=== PATIENT | female | born 1935 | race Caucasian/White ===

== ENCOUNTER 2019-08-03 05:40 | Emergency (ER) | payer MEDICARE ==
[~2019-08-03] VITALS: Ht 167.6 cm; Wt 67.6 kg
--- NOTE | 2019-08-03 05:59 | NUR ---
NAE FROM [facility]. TO ER BED 10. AAOX3. NO RESP DISTRESS NPTED, BREATHING EVEN AND UNLABORED. C/O DIARRHEA. PT REPORTS SHE HAS BEEN HAVING DIARRHEA X 2 DAYS. PT REPORTS LOOSE WATERY STOOL. PT ALSO COMPLAINTS OF GEN ABDOMEN DISCOMFORT. AWAITING MD FOR EVAL.
[2019-08-03] MEDS ORDERED: ONDANSETRON HCL/PF 4 MG/2 ML VIAL ONE (06:09)
[2019-08-03 06:26] LABS: BASOPHILS # (AUTO) 0.1 /CMM (0.0-0.2); BASOPHILS % (AUTO) 0.9 % (0.0-2.0); EOSINOPHILS % (AUTO) 2.7 % (0.0-6.0); HEMATOCRIT 39 % (33-45); HEMOGLOBIN 13.2 g/dL (11.5-14.8); LYMPHOCYTES % (AUTO) 33.2 % (20.0-44.0); MEAN CORPUSCULAR HGB CONC 33 g/dl (31.0-36.0); MEAN CORPUSCULAR VOLUME 91 fL (82-100); MONOCYTES # (AUTO) 0.9 /CMM (0.1-1.30); MONOCYTES % (AUTO) 7.2 % (2.0-12.0); NEUTROPHILS # (AUTO) 6.8 /CMM (1.8-8.9); PLATELET COUNT (AUTO) 240 /CMM (150-450); RED BLOOD CELL COUNT(AUTO) 4.36 MIL/uL (4.0-5.2); WHITE BLOOD COUNT (AUTO) 12.2 K/uL (4.3-11.0)
[2019-08-03] MEDS ORDERED: ONDANSETRON HCL/PF 4 MG/2 ML VIAL IVP ONE (06:30)
[2019-08-03] MEDS ORDERED: IV NS 0.9% 500 ML BAG IV ONE (06:30)
[2019-08-03] MEDS ORDERED: ONDANSETRON HCL/PF - ER 4 MG/2 ML VIAL IV ONE (06:30)
[2019-08-03 06:56] LABS: ALBUMIN 3.2 g/dL (3.4-5.0); BILIRUBIN,DIRECT 0.2 mg/dL (0.0-0.2); BILIRUBIN,TOTAL 0.7 mg/dL (0.2-1.0); CREATININE 1.2 mg/dL (0.6-1.3); POTASSIUM 3.4 mmol/L (3.5-5.1); TOTAL PROTEIN, SERUM 6.7 g/dL (6.4-8.2)
--- NOTE | 2019-08-03 07:03 | NUR ---
VERIFIED WITH MD REGARDING 2 ZOFRAN ORDERS. MD ORDERED TO GIVE ONLY ONE DOSE AND OTHER ORDER CANCELLED.
--- NOTE | 2019-08-03 07:24 | NUR ---
RECEIVED REPORT FROM TREASURE CORTÉS FOR CLARKE, PT IS AAOX3, NOT IN RESPIRATORY DISTRESS, V/S STABLE KEPT RESTED AND COMFORTABLE, WILL CONTINUE TO MONITOR.
--- NOTE | 2019-08-03 07:41 | NUR ---
CALLED [facility], SPOKE TO JEFF FROM [facility], ETA 0915, TRIP NUMBER:[id number]
[2019-08-03 09:41] VITALS: BP 148/89
--- NOTE | 2019-08-03 09:41 | NUR ---
IV removed. Catheter intact and site benign. Pressure and 4x4 applied to site. No bleeding noted. Patient discharged to home in stable condition. Written and verbal after care instructions given. Patient verbalizes understanding of instruction.
--- NOTE | 2019-08-04 12:46 | NUR ---
PATIENT WAS TRANSFERRED DISCHARGED TO [facility]UE: STOOL MICRO POSITIVE FOR C-DIFF CALLED TO PRIMARY NURSE CAN POLK
== END 2019-08-03 09:43 | disposition home or self-care (01) ==
LOC: ER 05:46
DX: R19.7 Diarrhea, unspecified (principal); I10 Essential (primary) hypertension; I48.91 Unspecified atrial fibrillation; Z86.73 Personal history of transient ischemic attack (TIA), and cerebral infarction without residual deficits
CPT/HCPCS: 36415; 71045; 80048; 80076; 83690; 85025; 87493; 96374; 99284; J2405 ×2; J7040

== ENCOUNTER 2021-05-07 15:11 | Inpatient (IN) | payer MEDICARE ==
[~2021-05-07] VITALS: Ht 170.2 cm; Wt 63.5 kg
--- NOTE | 2021-05-07 15:20 | NUR ---
NAE FROM LONG TERM, FOR FAILURE TO THRIVE, PT REFUSING MEDS X 3 DAYS. PATIENT A/OX4, BREATHING EVEN AND UNLABORED, PER PATIENT SHE HASN'T BEEN TAKING HER MEDS BECAUSE SHE DOESN'T NEED IT, EXCEPT FOR HER BP MEDS. PATIENT DENIES ANY COMPLAINTS. CHANGED INTO A GOWN.
--- NOTE | 2021-05-07 15:35 | NUR ---
DR. ISLAS AT BEDSIDE FOR EVAL.
--- NOTE | 2021-05-07 15:45 | NUR ---
PHLEB AT BEDSIDE FOR BLOOD DRAW. OFFERED A BED HOBBS, PATIENT REFUSED, STS "SHE CANNOT GO AT THIS TIME"
[2021-05-07 15:51] LABS: BASOPHILS # (AUTO) 0.1 /CMM (0.0-0.2); BASOPHILS % (AUTO) 1.3 % (0.0-2.0); HEMATOCRIT 38 % (33-45); HEMOGLOBIN 12.6 g/dL (11.5-14.8); MEAN CORPUSCULAR HGB CONC 33 g/dl (31.0-36.0); MEAN CORPUSCULAR VOLUME 90 fL (82-100); MONOCYTES # (AUTO) 0.8 /CMM (0.1-1.30); MONOCYTES % (AUTO) 8.7 % (2.0-12.0); PLATELET COUNT (AUTO) 267 /CMM (150-450); RED BLOOD CELL COUNT(AUTO) 4.25 MIL/uL (4.0-5.2); WHITE BLOOD COUNT (AUTO) 9.2 K/uL (4.3-11.0)
--- NOTE | 2021-05-07 15:51 | NUR ---
PATIENT IS REFUSING A BED HOBBS AND A STRAIGHT CATHETER FOR A URINE SAMPLE. EXPLAINED RISKS AND BENEFITS STILL REFUSED. INFORMED DR. ISLAS.
[2021-05-07 16:00] LABS: CALCIUM, SERUM 9.4 mg/dL (8.5-10.1); CARBON DIOXIDE 27 mmol/L (21-32); CHLORIDE 106 mmol/L (98-107); CREATININE 1.2 mg/dL (0.6-1.3); GLUCOSE 85 mg/dL (74-106); POTASSIUM 4.2 mmol/L (3.5-5.1); SODIUM SERUM 141 mmol/L (136-145); UREA NITROGEN, BLOOD 19 mg/dL (7-18)
[2021-05-07 16:07] LABS: ALANINE AMINOTRANSFERASE 16 U/L (12-78); ALCOHOL, BLOOD < 3 mg/dL (0-0); ALKALINE PHOSPHATASE 76 U/L (46-116); ASPARTATE AMINOTRANSFERASE 20 U/L (15-37); BILIRUBIN,DIRECT 0.1 mg/dL (0.0-0.2); BILIRUBIN,TOTAL 0.5 mg/dL (0.2-1.0); TOTAL PROTEIN, SERUM 7.2 g/dL (6.4-8.2)
[2021-05-07 16:08] LABS: ACETAMINOPHEN < 0 ug/ml (10-30)
[2021-05-07] MEDS ORDERED: SENN-175 PO (16:18)
[2021-05-07] MEDS ORDERED: ATOR20TA PO (16:18)
[2021-05-07] MEDS ORDERED: BUPR150T10 PO (16:18)
[2021-05-07] MEDS ORDERED: OLAN5TAB3 PO (16:18)
[2021-05-07] MEDS ORDERED: APIX2.5T PO (16:18)
[2021-05-07] MEDS ORDERED: VIT1TABL46 PO (16:18)
[2021-05-07] MEDS ORDERED: POLY17PO4 PO (16:18)
[2021-05-07] MEDS ORDERED: NA P133E8 RC (16:18)
[2021-05-07] MEDS ORDERED: FAMO20TA80 PO (16:18)
[2021-05-07] MEDS ORDERED: HYDR-4075 PO (16:18)
[2021-05-07] MEDS ORDERED: BISA10SU11 RC (16:18)
[2021-05-07] MEDS ORDERED: DOCU-141 PO (16:18)
[2021-05-07] MEDS ORDERED: TRAM50TA2 PO (16:18)
[2021-05-07] MEDS ORDERED: MELA3TAB41 PO (16:18)
[2021-05-07] MEDS ORDERED: MIRT-119 PO (16:18)
[2021-05-07] MEDS ORDERED: MAGN400O6 PO (16:18)
[2021-05-07] MEDS ORDERED: ZINC220T4 PO (16:18)
[2021-05-07] MEDS ORDERED: ACET325T53 PO (16:18)
[2021-05-07] MEDS ORDERED: METO25TA6 PO (16:18)
--- NOTE | 2021-05-07 16:19 | NUR ---
CALLED NURSING SUP FOR M/S BED.
--- NOTE | 2021-05-07 16:25 | NUR ---
COVID SWAB SENT TO LAB.
--- NOTE | 2021-05-07 16:31 | NUR ---
URINE SENT TO LAB. PATIENT HAD A BM, SKIN CARE DONE.
[2021-05-07 16:35] LABS: BILIRUBIN,URINE Negative (NEGATIVE); COLOR,URINE YELLOW (YELLOW); LEUKOCYTE ESTERASE ,URINE Trace (NEGATIVE); NITRITE, URINE Negative (NEGATIVE); PH,URINE 6.5 (5.0-8.0); PROTEIN,URINE Negative (NEGATIVE); UGLUCOSE Negative (NEGATIVE); UROBILINOGEN,URINE 0.2 EU/dL (0.2)
[2021-05-07 16:43] LABS: BACTERIA,URINE Few /HPF (None Seen); HYALINE CASTS, URINE Few /LPF (None Seen); MUCUS,URINE Few /LPF (None Seen); SQUAMOUS EPITHELIAL CELL,UR Few /HPF (None Seen)
--- NOTE | 2021-05-07 17:01 | NUR ---
NURSING SUP GAVE 104.
--- NOTE | 2021-05-07 17:15 | NUR ---
REPORT GIVEN TO MARICEL AMANDA FOR CLARKE.
[2021-05-07] MEDS ORDERED: FUROSEMIDE 20 MG/2 ML VIAL IV STA (17:27)
[2021-05-07] MEDS ORDERED: FUROSEMIDE 20 MG/2 ML VIAL ONE (17:39)
--- NOTE | 2021-05-07 17:42 | NUR ---
INSERTED IV ON LEFT HAND G22, LASIX GIVEN. PATIENT A/OX4, TRANSFERRED TO MED SURG FLOOR IN STABLE CONDITION.
--- NOTE | 2021-05-07 17:47 | NUR ---
GAVE UPDATE TO MARICEL VELEZ: JAREN ORDER AND IV SITE.
[2021-05-07 17:55] VITALS: BP 145/91
--- NOTE | 2021-05-07 17:55 | NUR ---
RN NOTES RECEIVED PT FROM ER. REPORT GIVEN BY YAZMIN AMANDA. A/OX4. STABLE ON ROOM AIR. NO SOB OR ANY S/S OF RESPIRATORY DISTRESS. DENIES ANY PAIN AT THIS MOMENT. SKIN IS INTACT. BELONGING LIST SIGNED. INFORMED DR. LAWS ABOUT ELEVATED BNP AND ADMITTING ORDERS. STILL AWAITS RESPONSE. PLACED IN BED, LOCKED AND IN LOWEST POSITION WITH SIDE RAILS UP X2. CALL LIGHT WITHIN REACH. WILL CONTINUE TO MONITOR.
[2021-05-07] MEDS ORDERED: Z GUARD REMEDY 2 OZ OINT TP PRN (18:30)
[2021-05-07] MEDS ORDERED: ACETAMINOPHEN 325 MG TABLET PO PRN (18:30)
[2021-05-07] MEDS ORDERED: HYDROCODONE/APAP 5/325MG TABLET PO PRN (18:30)
[2021-05-07] MEDS ORDERED: ONDANSETRON HCL/PF 4 MG/2 ML VIAL IVP PRN (18:30)
[2021-05-07] MEDS ORDERED: MAG HYDROX/AL HYDROX/SIMETH 30 ML UDC PO PRN (18:30)
[2021-05-07] MEDS ORDERED: SENNOSIDES 8.6 MG TABLET PO PRN (18:30)
[2021-05-07] MEDS ORDERED: NA PHOS,M-B/NA PHOS,DI-BA 1 EA ENEMA RC PRN (18:30)
[2021-05-07] MEDS ORDERED: MAGNESIUM HYDROXIDE 30 ML UDC PO PRN (18:30)
[2021-05-07] MEDS ORDERED: hydrALAZINE HCL 10 MG TABLET PO PRN (18:30)
--- NOTE | 2021-05-07 18:43 | NUR ---
RN NOTES PT REFUSES TELE MONITORING DESPITE EDUCATION X3. STILL REFUSED. INFORMED DR. LAWS, ADMIT TO MS INSTEAD OF TELEMETRY.
--- NOTE | 2021-05-07 19:11 | NUR ---
RN CLOSING NOTES NO SIGNIFICANT CHANGES THROUGHOUT THE SHIFT. STABLE ON ROOM AIR. NO PAIN REPORTED AT THIS TIME. KEPT CLEAN AND DRY. REFUSES ASSESSMENT ON LLE. SAFETY MEASURES STILL IN PLACE. WILL ENDORSE TO NIGHT RN FOR CLARKE.
[2021-05-07 20:00] VITALS: BP 137/108
--- NOTE | 2021-05-07 20:00 | NUR ---
RN NOTE RECEIVED PT IN BED ALERT AND ORIENTED. NO RESP DISTRESS NOTED. O2 SAT AT 95 % ON ROOM AIR. DENIES ANY SOB OR PAIN PT WITH IV ON LHAND. PATENT AND INTACT, FLUSHES WELL. ALL SAFETY MEASURES IMPLEMENTED PER PROTOCOL. CALL LIGHT WITHIN REACH, BED LOCKED IN LOWEST POSITION. SIDE RAILS UP.
[2021-05-07] MEDS: OLANZAPINE 5 MG TABLET PO SCH (21:18)
[2021-05-07] MEDS: buPROPion SR 150 MG TABLET.ER PO SCH (21:18)
[2021-05-07] MEDS: MIRTAZAPINE 15 MG TABLET PO SCH (21:18)
[2021-05-07] MEDS ORDERED: Medication Not On Formulary EA (Melatonin 3 MG) PO SCH (22:00)
[2021-05-07] MEDS ORDERED: ZOLPIDEM TARTRATE 5 MG TABLET PO PRN (22:00)
--- NOTE | 2021-05-07 23:40 | NUR ---
RN NOTE PT WITH LEFT LEG BOOT. CALLED PT FACILITY [facility], SPOKE TO NURSE THAT PT NEEDS IT WHILE IN BED WELL. NO DISCOLORATION NOTED. WITH GOOD CIRCULATION. WILL CONTINUE TO MONITOR.
[2021-05-08 04:00] VITALS: BP 150/99
[2021-05-08 06:24] LABS: BASOPHILS # (AUTO) 0.1 /CMM (0.0-0.2); BASOPHILS % (AUTO) 0.7 % (0.0-2.0); EOSINOPHILS % (AUTO) 5.2 % (0.0-6.0); HEMATOCRIT 38 % (33-45); HEMOGLOBIN 12.5 g/dL (11.5-14.8); LYMPHOCYTES # (AUTO) 5.1 /CMM (0.8-4.8); LYMPHOCYTES % (AUTO) 44.6 % (20.0-44.0); MEAN CORPUSCULAR HGB CONC 33 g/dl (31.0-36.0); MEAN CORPUSCULAR VOLUME 90 fL (82-100); MONOCYTES # (AUTO) 1.2 /CMM (0.1-1.30); MONOCYTES % (AUTO) 10.5 % (2.0-12.0); NEUTROPHILS # (AUTO) 4.5 /CMM (1.8-8.9); PLATELET COUNT (AUTO) 244 /CMM (150-450); RED BLOOD CELL COUNT(AUTO) 4.24 MIL/uL (4.0-5.2); WHITE BLOOD COUNT (AUTO) 11.4 K/uL (4.3-11.0)
--- NOTE | 2021-05-08 06:39 | NUR ---
RN NOTE PT SLEEPING, AROUSES EASILY. PT FORGETFUL, REORIENTED TO PLACE AND TIME. ABLE TO MAKE NEEDS KNOWN. NO SIGNS OF DISTRESS NOTED. PT DENIES ANY PAIN OR SOB. PT VOIDED 3X ON DIAPER, SOAKED. KEPT HOB ELEVATED. PT TOLERATING ROOM AIR. IV REMAIN PATENT AND INTACT. ALL SAFETY MEASURES MAINTAINED. WILL ENDORSE TO NEXT SHIFT NURSE FOR CLARKE.
[2021-05-08 07:05] LABS: CALCIUM, SERUM 9.2 mg/dL (8.5-10.1); CREATININE 1.2 mg/dL (0.6-1.3); MAGNESIUM 1.8 mg/dL (1.8-2.4); PHOSPHORUS 3.1 mg/dL (2.5-4.9); POTASSIUM 3.7 mmol/L (3.5-5.1)
[2021-05-08 07:29] LABS: THYROID STIMULATING HORMONE 12.524 uIU/mL (0.358-3.74)
[2021-05-08] MEDS: PANTOPRAZOLE 40 MG TABLET.DR PO SCH (08:13)
[2021-05-08] MEDS: VIT B CMPLX 3/FA/VIT C/BIOTIN 1 TAB TABLET PO SCH (08:21)
[2021-05-08] MEDS: ZINC SULFATE 220 MG CAPSULE PO SCH (08:21)
[2021-05-08] MEDS: buPROPion SR 150 MG TABLET.ER PO SCH ×2 (08:21→21:09)
[2021-05-08] MEDS: FUROSEMIDE 40 MG/4 ML VIAL IV SCH (08:21)
[2021-05-08] MEDS: METOPROLOL TARTRATE 25 MG TABLET PO SCH ×2 (08:23→18:33)
[2021-05-08] MEDS: APIXABAN 2.5 MG TABLET PO SCH ×2 (08:25→18:38)
[2021-05-08] MEDS: DOCUSATE SODIUM 100 MG CAPSULE PO SCH ×2 (09:00→16:02)
[2021-05-08] MEDS ORDERED: ATORVASTATIN 10 MG TABLET PO SCH (09:00)
[2021-05-08 12:00] VITALS: BP 154/88
--- NOTE | 2021-05-08 18:35 | NUR ---
PT REFUSED AN ECHOCARDIOGRAM TWICE. PT REFUSED YESTERDAY AND TODAY. INFORMED TREASURE BAEZ.
--- NOTE | 2021-05-08 19:21 | NUR ---
1700 PATIENT COMPLIANT WITH CARE, TOOK PM MEDICATIONS EXCEPT COLACE STATED SHE HAD A BIG BM YESTERDAY AND LOOSE STOOL TODAY AND DID NOT WANT THE MEDICATION AT THIS TIME IT WAS RETURNED TO [facility], SHE REFUSED CARE FROM VISUAL EFFECTS EDITOR AND WANTED TO CLEAN AND HELP HER SELF SO SHE WAS ALLOWED TO PERFORM HER OWN ADLS AND MICHAEL CARE, ALL SAFETY MEASURES CARRIED OUT AND CALL LIGHT IN REACH.
--- NOTE | 2021-05-08 19:55 | NUR ---
RN NOTE REC'D PT IN BED, A/O X3. PT IS ON ROOM AIR NO RESP DISTRESS, NO SOB NOTED. PT ON MED SURG MONITORING. IV SITE REPLACED, LEFT HAND #22 INTACT PATENT. PM CARE DONE. ALL NEEDS ATTENDED. PT DENIES PAIN AT THIS TIME. REDNESS NOTED UNDER BREASTFOLD, ZGUARD APPLIED. ALL SAFETY MEASURES IN PLACE. HOB ELEVATED. SIDE RAILS UP X2 BED LOCKED IN LOWEST POSITION WITH BED ALARM ON. CALL LIGHT WITHIN REACH. WILL CONT TO MONITOR CLOSELY.
[2021-05-08 20:00] VITALS: BP 144/97
[2021-05-08] MEDS: OLANZAPINE 5 MG TABLET PO SCH (21:09)
[2021-05-08] MEDS: MIRTAZAPINE 15 MG TABLET PO SCH (21:09)
--- NOTE | 2021-05-08 22:40 | NUR ---
RN NOTE REDNESS/RASH NOTED UNDER BILATERAL BREASTFOLDS. PT REFUSES PICTURES FOR WOUND DOCUMENTATION AT THIS TIME. EXPLAIN RISK AND BENEFITS X2 STILL REFUSES.
[2021-05-09 04:00] VITALS: BP 125/87
--- NOTE | 2021-05-09 05:50 | NUR ---
RN NOTE-LAB DRAW REFUSAL PT REFUSED TO GET LABS DRAWN, EXPLAINED RISK AND BENEFITS X3 PT STILL REFUSED. PT BECAME AGITATED AND AGGRESSIVE.
--- NOTE | 2021-05-09 06:40 | NUR ---
RN CLOSING NOTES AT THIS TIME, PT IS RESTING IN BED. NO SIGNIFICANT CHANGES IN PT CONDITION. PT CAN BE CONFUSED AT TIMES, BUT RESPONDS TO REORIENTATION. ALL NEEDS ATTENDED. PT NOT IN DISTRESS. NO SOB NOTED. DENIES PAIN. PT PEND WOUND CONSULT. REFUSED PICTURES. SAFETY MEASURES IN PLACE. HOB ELEVATED SIDE RAILS UP X2 BED LOCKED IN LOWEST POSITION WITH BED ALARM LACQUER MIXER LIGHT WITHIN REACH. WILL ENDORSE TO DAY SHIFT FOR CONTINUATION OF CARE.
[2021-05-09] MEDS: PANTOPRAZOLE 40 MG TABLET.DR PO SCH (07:38)
--- NOTE | 2021-05-09 07:42 | NUR ---
MS/RN OPENING NOTES RECEIVED PATIENT IN AWAKE ALERT AND ORIENTED X3. PATIENT IS ON ROOM AIR SATURATING WELL. PATIENT IN NO APPARENT RESPIRATORY DISTRESS NOTED. NO COMPLAINED OF PAIN AT THIS TIME. PATIENT REFUSED BLOOD DRAW PER KASH AMANDA. WILL CONTINUE TO MONITOR.
[2021-05-09] MEDS: FUROSEMIDE 40 MG/4 ML VIAL IV SCH (08:55)
[2021-05-09] MEDS: METOPROLOL TARTRATE 25 MG TABLET PO SCH ×2 (09:00→17:00)
[2021-05-09] MEDS: buPROPion SR 150 MG TABLET.ER PO SCH (09:00)
[2021-05-09] MEDS: DOCUSATE SODIUM 100 MG CAPSULE PO SCH ×2 (09:00→17:00)
[2021-05-09] MEDS: ZINC SULFATE 220 MG CAPSULE PO SCH (09:00)
[2021-05-09] MEDS: APIXABAN 2.5 MG TABLET PO SCH ×2 (09:00→17:00)
[2021-05-09] MEDS: VIT B CMPLX 3/FA/VIT C/BIOTIN 1 TAB TABLET PO SCH (09:00)
--- NOTE | 2021-05-09 09:21 | NUR ---
WOUND CARE CONSULT: REVIEWED CHART AND NURSING DOCUMENTATION WHICH INDICATES RASH TO BREASTFOLDS, PRESENT ON ADMISSION. PER CHART AND RN REPORT, PT HAS BEEN REFUSING MEDS, TREATMENTS AND PHOTOS. RECOMMENDATIONS MADE FOR SKIN PROTECTION BASED ON NURSING REPORT. MD IN AGREEMENT WITH PLAN OF CARE.
--- NOTE | 2021-05-09 09:53 | NUR ---
MS/RN NOTES PATIENT REFUSED MORNING SCHEDULE MEDICATIONS, EXPLAINED THE RISK AND BENEFITS. MD WAS AWARE. WILL CONTINUE TO MONITOR.
--- NOTE | 2021-05-09 10:38 | NUR ---
MS/RN NOTES DR. LAWS ORDER PSYCHE EVALUATION REASON HISTORY OF REFUSING MEDICATIONS, ANXIETY AND DEPRESSION. FACE SHEET WAS SENT TO [facility]. NOTED AND CARRIED OUT.
[2021-05-09] MEDS: CLOTRIMAZOLE 1% 15 GM TUBE TP SCH ×2 (12:41→17:00)
[2021-05-09 13:35] LABS: BASOPHILS % (AUTO) 0.4 % (0.0-2.0); EOSINOPHILS % (AUTO) 4.1 % (0.0-6.0); HEMATOCRIT 40 % (33-45); HEMOGLOBIN 13.2 g/dL (11.5-14.8); LYMPHOCYTES # (AUTO) 4.9 /CMM (0.8-4.8); LYMPHOCYTES % (AUTO) 45.5 % (20.0-44.0); MEAN CORPUSCULAR HGB CONC 33 g/dl (31.0-36.0); MEAN CORPUSCULAR VOLUME 90 fL (82-100); MONOCYTES # (AUTO) 0.9 /CMM (0.1-1.30); MONOCYTES % (AUTO) 8.6 % (2.0-12.0); NEUTROPHILS # (AUTO) 4.5 /CMM (1.8-8.9); NEUTROPHILS % (AUTO) 41.4 % (43.0-81.0); PLATELET COUNT (AUTO) 271 /CMM (150-450); RED BLOOD CELL COUNT(AUTO) 4.46 MIL/uL (4.0-5.2); WHITE BLOOD COUNT (AUTO) 10.8 K/uL (4.3-11.0)
[2021-05-09 13:49] LABS: CALCIUM, SERUM 9.5 mg/dL (8.5-10.1); CREATININE 1.3 mg/dL (0.6-1.3); MAGNESIUM 1.8 mg/dL (1.8-2.4); PHOSPHORUS 3.6 mg/dL (2.5-4.9); POTASSIUM 3.4 mmol/L (3.5-5.1)
[2021-05-09] MEDS ORDERED: POTASSIUM CHLORIDE 20 MEQ TAB.PRT.SR PO ONE (14:00)
[2021-05-09 16:00] VITALS: BP 135/87
[2021-05-09] MEDS ORDERED: CLOTRIMAZOLE 1% 15 GM TUBE TP SCH (17:00)
--- NOTE | 2021-05-09 19:25 | NUR ---
MS/RN OPENING NOTES PATIENT IS ON BED AWAKE ALERT AND ORIENTED X3. PATIENT IS ON ROOM AIR SATURATION 95%. PATIENT IN NO APPARENT RESPIRATORY DISTRESS NOTED. NO COMPLAINED OF PAIN AT THIS TIME. IV ACCESS AT LEFT HAND # 22 G PATENT AND INTACT. SEEN AND EXAMINED BY MD WITH ORDERS MADE AND CARRIED OUT. ALL DUE MEDICATIONS WAS GIVEN. SAFETY PRECAUTIONS WAS IN PLACED. BED IN LOWEST POSITION AND LOCKED. SIDERAILS UP X2. CALL LIGHT WITHIN REACH. PATIENT REFUSED ALL AFTERNOON ORAL SCHEDULE MEDICATION. EXPLAINED THE RISK AND BENEFITS, PATIENT WAS COURSING NURSES. WILL ENDORSED TO ADMITTING OFFICER FOR CLARKE.
--- NOTE | 2021-05-09 19:30 | NUR ---
RN NOTE REC'D PT IN BED, A/O X2 PT IS FORGETFUL AT TIMES. REORIENTATION MAY BE NEEDED. PT IS ON ROOM AIR NO RESP DISTRESS, NO SOB NOTED. PT ON MED SURG MONITORING. IV SITE FLUSHED, LEFT HAND #22 INTACT PATENT. ALL NEEDS ATTENDED. PT DENIES PAIN AT THIS TIME. ALL SAFETY MEASURES IN PLACE. HOB ELEVATED. SIDE RAILS UP X2 BED LOCKED IN LOWEST POSITION WITH BED ALARM ON. CALL LIGHT WITHIN REACH. WILL CONT TO MONITOR CLOSELY.
[2021-05-09 20:00] VITALS: BP 120/65
[2021-05-09] MEDS: MIRTAZAPINE 15 MG TABLET PO SCH (22:44)
[2021-05-09] MEDS: OLANZAPINE 5 MG TABLET PO SCH (22:44)
[2021-05-10 04:00] VITALS: BP 135/90
[2021-05-10 06:13] LABS: BASOPHILS # (AUTO) 0.2 /CMM (0.0-0.2); BASOPHILS % (AUTO) 1.3 % (0.0-2.0); EOSINOPHILS % (AUTO) 4.6 % (0.0-6.0); HEMATOCRIT 39 % (33-45); LYMPHOCYTES # (AUTO) 5.7 /CMM (0.8-4.8); LYMPHOCYTES % (AUTO) 47.8 % (20.0-44.0); MEAN CORPUSCULAR HGB CONC 33 g/dl (31.0-36.0); MEAN CORPUSCULAR VOLUME 89 fL (82-100); MONOCYTES # (AUTO) 1.1 /CMM (0.1-1.30); MONOCYTES % (AUTO) 8.8 % (2.0-12.0); NEUTROPHILS # (AUTO) 4.5 /CMM (1.8-8.9); NEUTROPHILS % (AUTO) 37.5 % (43.0-81.0); PLATELET COUNT (AUTO) 253 /CMM (150-450); RED BLOOD CELL COUNT(AUTO) 4.38 MIL/uL (4.0-5.2)
--- NOTE | 2021-05-10 06:32 | NUR ---
RN CLOSING NOTES NO SIGNIFICANT CHANGES IN PT CONDITION, AT THIS TIME IS RESTING IN BED. PT CAN BE AGGRESSIVE AND CONFUSED AT TIMES. BED BATH DONE, WOUND TX DONE. ALL NEEDS ATTENDED. STILL ON ROOM AIR NO SOB NO RESP DISTRESS NOTED. PT DENIES PAIN. SAFETY MEASURES IN PLACE HOB ELEVATED SIDE RAILS UP X2 BED LOCKED IN LOWEST POSITION WITH BED ALARM [employer] DEVELOPER LIGHT WITHIN REACH WILL ENDORSE TO DAY SHIFT NURSE FOR CONTINUATION OF CARE.
[2021-05-10 06:55] LABS: CALCIUM, SERUM 9.6 mg/dL (8.5-10.1); CARBON DIOXIDE 27 mmol/L (21-32); CHLORIDE 108 mmol/L (98-107); CREATININE 1.4 mg/dL (0.6-1.3); GLUCOSE 97 mg/dL (74-106); PHOSPHORUS 3.3 mg/dL (2.5-4.9); POTASSIUM 3.6 mmol/L (3.5-5.1); SODIUM SERUM 144 mmol/L (136-145); UREA NITROGEN, BLOOD 29 mg/dL (7-18)
--- NOTE | 2021-05-10 07:22 | NUR ---
RN OPENING NOTES NO SIGNIFICANT CHANGES IN PT CONDITION, AT THIS TIME IS RESTING IN BED. PT CAN BE AGGRESSIVE AND CONFUSED AT TIMES. ALL NEEDS ATTENDED. PT ON ROOM AIR NO SOB NO RESP DISTRESS NOTED. PT DENIES PAIN. SAFETY MEASURES IN PLACE HOB ELEVATED SIDE RAILS UP X2 BED LOCKED IN LOWEST POSITION WITH BED ALARM STEAM TABLE WORKER LIGHT WITHIN REACH AND ANSWERED PROMPTLY.
[2021-05-10] MEDS: PANTOPRAZOLE 40 MG TABLET.DR PO SCH (07:30)
[2021-05-10] MEDS: FUROSEMIDE 40 MG/4 ML VIAL IV SCH (09:00)
[2021-05-10] MEDS: VIT B CMPLX 3/FA/VIT C/BIOTIN 1 TAB TABLET PO SCH (09:00)
[2021-05-10] MEDS: METOPROLOL TARTRATE 25 MG TABLET PO SCH ×2 (09:00→16:11)
[2021-05-10] MEDS: DOCUSATE SODIUM 100 MG CAPSULE PO SCH ×2 (09:00→16:10)
[2021-05-10] MEDS: ESCITALOPRAM OXALATE (10 MG) 10 MG TABLET PO SCH (09:00)
[2021-05-10] MEDS: CLOTRIMAZOLE 1% 15 GM TUBE TP SCH ×2 (09:00→16:11)
[2021-05-10] MEDS: APIXABAN 2.5 MG TABLET PO SCH ×2 (09:00→16:10)
[2021-05-10] MEDS: ZINC SULFATE 220 MG CAPSULE PO SCH (09:00)
--- NOTE | 2021-05-10 09:55 | NUR ---
MSRN NOTE ATTEMPTED TO GIVE 0730 AND 0900 MEDICATIONS , PT REFUSES ALL MEDICATION , WILL CONTINUE TO MONITOR AND NOTIFY MD
--- NOTE | 2021-05-10 11:24 | NUR ---
PRELIMINARY RESULT OF ECHO SHOWED EF 20-25%. ADVISED TREASURE MADDOX.
--- NOTE | 2021-05-10 13:31 | NUR ---
patient sedated but arousable,vss reviewed seen and evaluated by dr. redd and ordered to d/c zyprexa for now r/t sedation,will continue to monitor.
--- NOTE | 2021-05-10 16:09 | NUR ---
Attempted to give medications to pt, pt refused medications, explained to pt benefits of medication and risks of refusing but still refused.
--- NOTE | 2021-05-10 18:13 | NUR ---
RN CLOSING NOTES NO SIGNIFICANT CHANGES IN PT CONDITION, AT THIS TIME IS RESTING IN BED. PT REFUSING ALL MEDICATIONS AND TREATMENT. ALL NEEDS ATTENDED. PT ON ROOM AIR NO SOB NO RESP DISTRESS NOTED. PT DENIES PAIN. SAFETY MEASURES IN PLACE HOB ELEVATED SIDE RAILS UP X2 BED LOCKED IN LOWEST POSITION WITH BED ALARM CYBER SYSTEMS OPERATIONS SPECIALIST LIGHT WITHIN REACH AND ANSWERED PROMPTLY.
--- NOTE | 2021-05-10 19:05 | NUR ---
MS RN OPENING NOTES: RECEIVED PATIENT IN BED, ASLEEP, EASILY AROUSABLE. NO S/S OF DISTRESS NOTED. CALL LIGHT WITHIN REACH. BED ALARM ON. BED IN LOWEST AND LOCKED POSITION. WITH LEFT LOWER LEG SPECIAL BOOT ON.PATIENT IS A/O X1,CONFUSED.
[2021-05-10] MEDS: MIRTAZAPINE 15 MG TABLET PO SCH (21:21)
--- NOTE | 2021-05-11 06:03 | NUR ---
MS RN CLOSING NOTES: PATIENT IN BED, AWAKE, CONFUSED. NO S/S OF DISTRESS NOTED. CALL LIGHT WITHIN REACH. BED ALARM ON. BED IN LOWEST AND LOCKED POSITION. KEPT PT DRY AND CLEAN. PATIENT IS COMBATIVE AND AGRESSIVE, AND SPITS. TURNED AND REPOSITIONED [id number]. STILL WITH LEFT LOWER EXTREMITY SPECIAL BOOT ON.
[2021-05-11 08:00] VITALS: BP 111/62
[2021-05-11] MEDS: ZINC SULFATE 220 MG CAPSULE PO SCH (08:22)
[2021-05-11] MEDS: VIT B CMPLX 3/FA/VIT C/BIOTIN 1 TAB TABLET PO SCH (08:22)
[2021-05-11] MEDS: ESCITALOPRAM OXALATE (10 MG) 10 MG TABLET PO SCH (08:22)
[2021-05-11] MEDS: DOCUSATE SODIUM 100 MG CAPSULE PO SCH ×2 (08:22→16:37)
[2021-05-11] MEDS: FUROSEMIDE 40 MG/4 ML VIAL IV SCH (08:22)
[2021-05-11] MEDS: PANTOPRAZOLE 40 MG TABLET.DR PO SCH (08:23)
[2021-05-11] MEDS: APIXABAN 2.5 MG TABLET PO SCH ×2 (08:23→16:37)
[2021-05-11] MEDS: METOPROLOL TARTRATE 25 MG TABLET PO SCH ×2 (08:23→16:37)
[2021-05-11] MEDS: CLOTRIMAZOLE 1% 15 GM TUBE TP SCH ×2 (08:24→16:40)
[2021-05-11] MEDS ORDERED: FUROSEMIDE 40 MG TABLET PO SCH (09:00)
[2021-05-11] MEDS: CARVEDILOL 6.25 MG TABLET PO SCH ×2 (09:00→21:19)
--- NOTE | 2021-05-11 11:18 | NUR ---
asleep but arousable. Refused to open mouth when fed breakfast., and decline blood drawn x 2 today. first seen, asleep but arousable. refused to eat, and declined blood drawn x2. now wide awake, asked whether blood can be drawn, " no , not now. will let you know when I am ready", agreed to eat crackers and drank water. Appeared very alert, and oriented.
[2021-05-11 16:00] VITALS: BP 110/64
--- NOTE | 2021-05-11 16:53 | NUR ---
wide awake, ate lunch at least more than 50%, asked for snacks afterwards. Mood lability noticeable. when first met this am, took pills, but not eating this afternoon, refused vital sign, and 5pm pill. Patient might need psy consult if continues non-compliant.
--- NOTE | 2021-05-11 19:35 | NUR ---
MS1 RN NOTES RECEIVED ON BED WIDE AWAKE,BREATHING EASY NO SOB,ON ROOM AIR 98% O2 SAT.SALINE LOCK LEFT HAND INTACT AND PATENT,FALL RISK ,BED ALARM TRIGGERED,BED ON LOWEST POSITION AND LOCKED,CALL LIGHT IN REACH,NEEDS ANTICIPATED.
[2021-05-11 20:00] VITALS: BP 129/78
[2021-05-11] MEDS: MIRTAZAPINE 15 MG TABLET PO SCH (21:26)
--- NOTE | 2021-05-11 21:40 | NUR ---
MS1 RN NOTES REFUSED PO REMERON 30MG
--- NOTE | 2021-05-11 23:08 | NUR ---
MS1 RN NOTES C/O INSOMNIA,AMBIEN 5MG PO GIVEN ORDERED AND PER PATIENT REQUEST.
[2021-05-12 04:39] VITALS: BP 121/76
--- NOTE | 2021-05-12 06:27 | NUR ---
MS1 RN CLOSING NOTES SLEEP WITH INTERVALS,EASILY GETS AGITATED,FOR PSYCHE EVAL FOR ANXIETY,DEPRESSION AND REFUSING TO TAKE HER MEDS.WILL ENDORSE TO DAY NUSRE FOR CLARKE.
[2021-05-12 06:31] LABS: BASOPHILS # (AUTO) 0.1 /CMM (0.0-0.2); EOSINOPHILS % (AUTO) 4.4 % (0.0-6.0); HEMATOCRIT 40 % (33-45); LYMPHOCYTES # (AUTO) 5.6 /CMM (0.8-4.8); MEAN CORPUSCULAR HGB CONC 33 g/dl (31.0-36.0); MEAN CORPUSCULAR VOLUME 90 fL (82-100); MONOCYTES % (AUTO) 8.3 % (2.0-12.0); NEUTROPHILS # (AUTO) 4.4 /CMM (1.8-8.9); NEUTROPHILS % (AUTO) 38.3 % (43.0-81.0); PLATELET COUNT (AUTO) 233 /CMM (150-450); RED BLOOD CELL COUNT(AUTO) 4.45 MIL/uL (4.0-5.2); WHITE BLOOD COUNT (AUTO) 11.6 K/uL (4.3-11.0)
[2021-05-12 06:59] LABS: CALCIUM, SERUM 9.6 mg/dL (8.5-10.1); CARBON DIOXIDE 28 mmol/L (21-32); CHLORIDE 109 mmol/L (98-107); CREATININE 1.7 mg/dL (0.6-1.3); GLUCOSE 114 mg/dL (74-106); MAGNESIUM 2.1 mg/dL (1.8-2.4); PHOSPHORUS 3.1 mg/dL (2.5-4.9); POTASSIUM 4.4 mmol/L (3.5-5.1); SODIUM SERUM 145 mmol/L (136-145); UREA NITROGEN, BLOOD 36 mg/dL (7-18)
[2021-05-12] MEDS: PANTOPRAZOLE 40 MG TABLET.DR PO SCH ×2 (07:30→07:42)
--- NOTE | 2021-05-12 07:30 | NUR ---
RN OPENING NOTES PATIENT PRESENT IN BED, SLEEPING, A/O X2, SLEEPING, REFUSING MORNING PILLS, HOLDING ON BED SIDE , IV LINE FLUSHED, PATENT AND INTACT SAFETY MEASURES IN PLACE, BED LOCKED , IN LOWEST POSITION,, WILL CONT TO MONITOR
[2021-05-12 08:00] VITALS: BP 129/91
[2021-05-12] MEDS: APIXABAN 2.5 MG TABLET PO SCH ×3 (09:00→17:00)
[2021-05-12] MEDS: CLOTRIMAZOLE 1% 15 GM TUBE TP SCH ×3 (09:00→17:00)
[2021-05-12] MEDS: FUROSEMIDE 40 MG TABLET PO SCH ×2 (09:00→09:05)
[2021-05-12] MEDS: METOPROLOL TARTRATE 25 MG TABLET PO SCH ×3 (09:00→17:15)
[2021-05-12] MEDS: ZINC SULFATE 220 MG CAPSULE PO SCH ×2 (09:00→09:06)
[2021-05-12] MEDS: ESCITALOPRAM OXALATE (10 MG) 10 MG TABLET PO SCH ×2 (09:00→09:07)
[2021-05-12] MEDS: DOCUSATE SODIUM 100 MG CAPSULE PO SCH ×3 (09:00→17:00)
[2021-05-12] MEDS: CARVEDILOL 6.25 MG TABLET PO SCH ×3 (09:00→21:26)
[2021-05-12] MEDS: VIT B CMPLX 3/FA/VIT C/BIOTIN 1 TAB TABLET PO SCH ×2 (09:00→09:06)
--- NOTE | 2021-05-12 11:42 | NUR ---
HITTING STAFF, REFUSING TO TAKE PILLS, REFUSING TO EAT, REFUSED MORNING CARE, REPOSITIONED IN BED, SAFETY MEASURES IN PLACE, HOB ELEVATED, CALL LIGHT IN REACH, WILL CONT TO MONITOR
[2021-05-12 12:06] LABS: *SPE A/G RATIO 0.9 (0.7-1.7); *SPE ALBUMIN 3.1 g/dL (2.9-4.4); *SPE ALPHA-1-GLOBULIN 0.3 g/dL (0.0-0.4); *SPE ALPHA-2-GLOBULIN 0.8 g/dL (0.4-1.0); *SPE BETA GLOBULIN 0.9 g/dL (0.7-1.3); *SPE GLOBULIN, TOTAL 3.4 g/dL (2.2-3.9); *SPE M-SPIKE Not Observed g/dL (Not Observed); *SPEGAMMA GLOBULIN 1.4 g/dL (0.4-1.8)
[2021-05-12 16:00] VITALS: BP 127/91
--- NOTE | 2021-05-12 17:15 | NUR ---
RN NOTE Refused to take Eliqus, Colace and Apply Lotrimin, agreed to have BP medications
--- NOTE | 2021-05-12 18:33 | NUR ---
RN CLOSING NOTE REMAINS IN ROOM, EATING, CHANGE INTO NEW DIAPER, CLEANED, REPOSITED, NO ACUTE CHANGES THROUGH THE SHIFT , WILL ENDORSE TO PM SHIFT RN FOR CLARKE
[2021-05-12 20:00] VITALS: BP 120/62
[2021-05-12] MEDS: MIRTAZAPINE 15 MG TABLET PO SCH (21:26)
--- NOTE | 2021-05-12 21:36 | NUR ---
MS RN NOTE RECEIVED PATIENT IN BED. A/OX2. TOLERATING ROOM AIR. RESPIRATIONS ARE EVEN AND UNLABORED. NO S/S SOB NOTED. NO C/O PAIN AT THIS TIME. IN NO APPARENT DISTRESS. IV ACCESS IN LEFT HAND #22 SALINE LOCKED. BED IS LOW AND LOCKED, HOB ELEVATED IN SEMI FOWLERS, SIDE RAILS UP X2, CALL LIGHT WITHIN REACH. WILL CONTINUE TO MONITOR THROUGHOUT SHIFT.
[2021-05-13 04:00] VITALS: BP 90/70
[2021-05-13 06:23] LABS: BASOPHILS # (AUTO) 0.1 /CMM (0.0-0.2); BASOPHILS % (AUTO) 1.3 % (0.0-2.0); EOSINOPHILS % (AUTO) 5.3 % (0.0-6.0); HEMATOCRIT 39 % (33-45); HEMOGLOBIN 12.6 g/dL (11.5-14.8); LYMPHOCYTES # (AUTO) 5.5 /CMM (0.8-4.8); LYMPHOCYTES % (AUTO) 53.1 % (20.0-44.0); MEAN CORPUSCULAR HGB CONC 33 g/dl (31.0-36.0); MEAN CORPUSCULAR VOLUME 90 fL (82-100); MONOCYTES # (AUTO) 0.9 /CMM (0.1-1.30); MONOCYTES % (AUTO) 8.3 % (2.0-12.0); NEUTROPHILS # (AUTO) 3.3 /CMM (1.8-8.9); PLATELET COUNT (AUTO) 228 /CMM (150-450); RED BLOOD CELL COUNT(AUTO) 4.28 MIL/uL (4.0-5.2); WHITE BLOOD COUNT (AUTO) 10.4 K/uL (4.3-11.0)
--- NOTE | 2021-05-13 06:36 | NUR ---
RN NOTE PATIENT RESTING IN BED. A/OX2. REMAINS TOLERATING ROOM AIR. NO RESP DISTRESS. NO C/O PAIN. NO DISTRESS. IV IN LEFT HAND #22. BED REMAINS LOW AND LOCKED, HOB ELEVATED IN SEMI FOWLERS, SIDE RAILS UP X2, CALL LIGHT WITHIN REACH, BED ALARM ON. WILL ENDORSE TO ONCOMING SHIFT.
[2021-05-13 06:49] LABS: CALCIUM, SERUM 9.4 mg/dL (8.5-10.1); CARBON DIOXIDE 26 mmol/L (21-32); CHLORIDE 107 mmol/L (98-107); CREATININE 1.4 mg/dL (0.6-1.3); GLUCOSE 102 mg/dL (74-106); MAGNESIUM 2.3 mg/dL (1.8-2.4); PHOSPHORUS 3.5 mg/dL (2.5-4.9); POTASSIUM 3.4 mmol/L (3.5-5.1); SODIUM SERUM 143 mmol/L (136-145); UREA NITROGEN, BLOOD 37 mg/dL (7-18)
--- NOTE | 2021-05-13 07:15 | NUR ---
ms rn received on bed, awake,alert,oriented x2-3,not in any form of distress, respirations even and unlabored, no sob noted, denies pain at this time, will monitor patient.
--- NOTE | 2021-05-13 07:30 | NUR ---
ms rn received on bed, awake,alert,oriented x3, not in any form of distress, respirations even and unlabored,no sob noted, lungs are diminish,abdomen soft,positive bowel sounds, denies pain at this time, will monitor patient.
[2021-05-13 08:00] VITALS: BP 124/83
--- NOTE | 2021-05-13 08:30 | NUR ---
ms morfin breakfast served,due meds given, tolerated well.
[2021-05-13] MEDS ORDERED: POTASSIUM CHLORIDE 20 MEQ TAB.PRT.SR PO ONE (09:00)
[2021-05-13] MEDS: CARVEDILOL 6.25 MG TABLET PO SCH (09:01)
[2021-05-13] MEDS: METOPROLOL TARTRATE 25 MG TABLET PO SCH ×2 (09:02→17:54)
[2021-05-13] MEDS: PANTOPRAZOLE 40 MG TABLET.DR PO SCH (09:02)
[2021-05-13] MEDS: VIT B CMPLX 3/FA/VIT C/BIOTIN 1 TAB TABLET PO SCH (09:02)
[2021-05-13] MEDS: ESCITALOPRAM OXALATE (10 MG) 10 MG TABLET PO SCH (09:02)
[2021-05-13] MEDS: DOCUSATE SODIUM 100 MG CAPSULE PO SCH ×2 (09:02→17:54)
[2021-05-13] MEDS: ZINC SULFATE 220 MG CAPSULE PO SCH (09:02)
[2021-05-13] MEDS: APIXABAN 2.5 MG TABLET PO SCH ×2 (09:08→17:55)
[2021-05-13] MEDS: CLOTRIMAZOLE 1% 15 GM TUBE TP SCH ×2 (09:54→17:56)
[2021-05-13] MEDS: ENSURE ENLIVE 237 ML LIQUID (VANILLA) PO SCH ×2 (10:00→17:00)
--- NOTE | 2021-05-13 15:30 | NUR ---
ms rn called [facility] for report to transfer.
[2021-05-13 16:00] VITALS: BP 115/62
--- NOTE | 2021-05-13 16:33 | NUR ---
pt. awake,alert and smiled when asked about her lunch today,pt. verbalized "it was good".no complaints.
--- NOTE | 2021-05-13 16:35 | NUR ---
call light at reach.
--- NOTE | 2021-05-13 17:00 | NUR ---
ms speech language pathologist prn called, changed to [facility].
[2021-05-13 17:54] VITALS: BP 115/62
--- NOTE | 2021-05-13 18:30 | NUR ---
ms afternoon nanny called, facility will be [facility].patient refused to be change per jorge coronel
--- NOTE | 2021-05-13 19:30 | NUR ---
MS/RN OPENING NOTE RECEIVED PATIENT RESTING IN BED. AWAKE, ALERT AND ORIENTED X 2. ABLE TO MAKE NEEDS KNOWN. FORGETFUL AT TIMES. CONTINUES ON ROOM AIR WITH NO S/SX OF RESPIRATORY DISTRESS NOTED. IV ACCESS TO LEFT HAND INTACT, PATENT AND SALINE LOCKED. CONTINUES ON CARDIAC DIET WITH NO S/SX OF ASPIRATION NOTED. PATIENT TO BE DISCHARGE TODAY TO SNF. CALL LIGHT WITHIN REACH. ASPIRATION, FALL AND SAFETY PRECAUTIONS MAINTAINED. WILL CONTINUE TO MONITOR.
--- NOTE | 2021-05-13 20:20 | NUR ---
MS/RN NOTE CALLED [facility] AND GAVE REPORT TO TREASURE CAMILO.
--- NOTE | 2021-05-13 21:00 | NUR ---
MS/CIRCULATION WORKER NOTE PATIENT [facility]CHARG[facility] TO [facility] AT APPROX. 2100. REPORT GIVEN TO MANAGER MEAT AND ALL PAPERWORK GIVEN. PATIENT SIGNED ALL PAPERWORK AND BELONGINGS LIST. PATIENT LEFT WITH ALL BELONGINGS. LLE BOOT APPLIED FOR TRANSPORT. IV REMOVED FROM LEFT HAND. PATIENT TOLERATED WELL. MINIMAL DRAINAGE NOTED WITH PRESSURE DRESSING APPLIED. ID BAND REMOVED. PATIENT LEFT VIA RNEY AND 2 MANAGER MEAT.
[2021-05-14] MEDS ORDERED: FUROSEMIDE 20 MG TABLET PO SCH (09:00)
[2021-05-14] MEDS ORDERED: POTASSIUM CHLORIDE 10 MEQ TABLET.SA PO SCH (09:00)
== END 2021-05-13 21:02 | DRG 291 ==
LOC: ER 15:26 → MEDSG1 17:17 → TELE1 18:21 → MEDSG1 18:46
PROVIDERS: ADMIT Student in an Organized Health Care Education/Training Program
DX: I11.0 Hypertensive heart disease with heart failure (principal); N17.0 Acute kidney failure with tubular necrosis; E44.0 Moderate protein-calorie malnutrition; F33.2 Major depressive disorder, recurrent severe without psychotic features; I48.91 Unspecified atrial fibrillation; Z86.73 Personal history of transient ischemic attack (TIA), and cerebral infarction without residual deficits; Z20.822 Contact with and (suspected) exposure to COVID-19; E86.0 Dehydration; I50.23 Acute on chronic systolic (congestive) heart failure; Z79.899 Other long term (current) drug therapy; Z91.14 Patient's other noncompliance with medication regimen; R62.7 Adult failure to thrive; F41.9 Anxiety disorder, unspecified; E78.5 Hyperlipidemia, unspecified; E03.9 Hypothyroidism, unspecified; Z95.0 Presence of cardiac pacemaker; Z79.01 Long term (current) use of anticoagulants; Z87.891 Personal history of nicotine dependence; F03.90 Unspecified dementia, unspecified severity, without behavioral disturbance, psychotic disturbance, mood disturbance, and anxiety; T50.2X5A Adverse effect of carbonic-anhydrase inhibitors, benzothiadiazides and other diuretics, initial encounter; Y92.9 Unspecified place or not applicable
CPT/HCPCS: 36415; 71045-TC; 80048-TC; 80076-TC; 81001; 82728-TC; 83540-TC; 83735-TC; 83880; 84100-TC; 84155; 84165; 84439-TC; 84443-TC; 85025-TC; 87081-TC; 93307-TC; 97110-TC; 97112-TC; 97530-TC; G0378; G0480; J1940; U0003